=== PATIENT | female | born 1980 | race Caucasian/White ===

== ENCOUNTER 2017-11-19 21:45 | Emergency (ER) | payer OTHER, SELFPAY ==
[2017-11-19] MEDS ORDERED: NA CHLORIDE 0.9% 1,000 ML ONE ×3 (21:56→23:52)
[2017-11-19] MEDS ORDERED: DIPHENHYDRAMINE 50 MG/ML VIAL ONE ×2 (21:56→22:00)
[2017-11-19] MEDS ORDERED: CROTALIDAE ANTIVENIM 2 GM/BOX IV ONE (22:00)
[2017-11-19] MEDS ORDERED: NA CHLORIDE 0.9% 250 ML ONE (22:02)
[2017-11-19] MEDS ORDERED: ONDANSETRON 4 MG/2 ML VIAL ONE (22:09)
[2017-11-19] MEDS ORDERED: TETANUS & DIPHTHERIA TOX,ADULT 0.5 ML VIAL ONE (22:09)
[2017-11-19] MEDS ORDERED: MORPHINE 4 MG/ML SYR ONE (22:09)
[2017-11-19 22:42] LABS: Absolute Lymphocytes (CBC) 3.9 K/uL (0.7-4.9); Absolute Monocytes 0.4 K/uL (0.1-1.3); Absolute Neutrophil 4.3 K/uL (1.8-8.0); Basophils % 0.5 % (0-1.3); Eosinophils % 1.9 % (0-4.4); Hematocrit 39.5 % (36.0-45.0); Lymphocytes % 44.2 % (15.3-44.8); MCH 30.9 pg (27.0-35.0); MCV 90.5 fL (80-100); MPV 8.2 fL (7.6-11.3); Monocytes % 4.3 % (3.3-12.3); RBC Red Blood Cell Count 4.37 M/uL (3.86-4.86)
[2017-11-19 22:57] LABS: Protime INR 0.97
--- NOTE | 2017-11-19 23:04 | ER ---
Nurse's Notes [facility] Name: Celia Saunders Age: 37 yrs Sex: Female : 1980 Arrival Date: 11/19/2017 Time: 21:47 Bed 4 Private MD: Diagnosis: Toxic effect of rattlesnake venom;Hypotension Presentation: 11/19 21:52 Presenting complaint: Patient states: she was bit in right calf by a large rattlesnake bb at 2120 prior to arrival. Transition of care: patient was not received from another setting of care. Onset of symptoms was November 19, 2017. Risk Assessment: Do you want to hurt yourself or someone else? Patient reports no desire to harm self or others. Initial Sepsis Screen: Does the patient meet any 2 criteria? No. Patient's initial sepsis screen is negative. Does the patient have a suspected source of infection? No. Patient's initial sepsis screen is negative. Care prior to arrival: None. 21:52 Method Of Arrival: Wheelchair bb 21:52 Acuity: WILTON 2 bb [employer]: 21:53 LMP 11/19/2017 bb Historical: - Allergies: 21:53 No Known Allergies; bb - Home Meds: 21:53 None [Active]; bb - PMHx: 21:53 None; bb - PSHx: 21:53 Appendectomy; bb - Immunization history:: Adult Immunizations up to date. - Social history:: Smoking status: Patient/guardian denies using tobacco, Patient uses alcohol, occasionally. Patient/guardian denies using street drugs. - Ebola Screening: : No symptoms or risks identified at this time. - Family history:: not pertinent. - Hospitalizations: : No recent hospitalization is reported. Screenin:49 Abuse screen: Denies threats or abuse. Denies injuries from another. Nutritional lp1 screening: No deficits noted. Tuberculosis screening: No symptoms or risk factors identified. Fall Risk Total Laguerre Fall Scale indicates High Risk Score (45 or more points). Fall prevention measures have been instituted. Assessment: 22:00 General: Appears distressed, Behavior is anxious, crying. Pain: Complains of pain in lp1 right calf Pain currently is 10 out of 10 on a pain scale. Quality of pain is described as sharp, shooting, stabbing, Pain began 30 min ago. Neuro: Level of Consciousness is awake, alert, obeys commands, Oriented to person, place, time, situation. Cardiovascular: Capillary refill < 3 seconds in bilateral fingers toes Rhythm is sinus tachycardia. Respiratory: Airway is patent Trachea midline Respiratory effort is even, unlabored, Respiratory pattern is regular, symmetrical, Breath sounds are clear bilaterally. GI: Abdomen is non-distended, Reports nausea. : No signs and/or symptoms were reported regarding the genitourinary system. EENT: No signs and/or symptoms were reported regarding the EENT system. Derm: Puncture wounds to back of right calf; bruising and edema around site. Musculoskeletal: Circulation, motion, and sensation intact. 22:10 Reassessment:. Reassessment: Dr. Goff at bedside; Patient hypotensive. General: lp1 Behavior is. Neuro: Level of Consciousness is lethargic, Patient responding to questions. 22:45 Reassessment: Yasmine hugger applied to patient for comfort; Bite site continues to be lp1 bruised, swollen, no increase in size. 23:30 Reassessment: Report called to Jey Garces RN at [facility]. lp1 Vital Signs: 21:53 BP 122 / 84; Pulse 155; Resp 20 S; Pulse Ox 98% on R/A; Weight 74.84 kg (R); Height 5 bb ft. 2 in. (157.48 cm) (R); Pain 10/10; 22:00 BP 70 / 39; Pulse 111; Resp 20; Pulse Ox 98% on R/A; lp1 22:10 BP 72 / 48; Pulse 106; Resp 24; Pulse Ox 100% on 2 lpm NC; lp1 22:20 BP 85 / 59; Pulse 101; Resp 20; Pulse Ox 98% on 2 lpm NC; lp1 22:30 BP 104 / 70; Pulse 96; Resp 20; Pulse Ox 100% on 2 lpm NC; lp1 22:49 BP 106 / 79; Pulse 101; Resp 22; Pulse Ox 100% on 2 lpm NC; lp1 23:13 BP 102 / 71; Pulse 107; Resp 24; Temp 98.6(O); Pulse Ox 100% on 2 lpm NC; lp1 23:30 BP 97 / 63; Pulse 106; Resp 20; Pulse Ox 100% on 2 lpm NC; lp1 21:53 Body Mass Index 30.18 (74.84 kg, 157.48 cm) bb ED Course: 21:47 Patient arrived in ED. rg2 21:50 Inserted saline lock: 20 gauge in right antecubital area, using aseptic technique. ea ,using aseptic technique. Jessica Proctor RN Blood collected. 21:52 Jamal Goff MD is Attending Physician. rg2 21:53 Triage completed. bb 21:53 Arm band placed on Patient placed in an exam room, on a stretcher, on pathology teacher, bb on pulse oximetry. 22:00 Patient has correct armband on for positive identification. Placed in gown. Bed in low lp1 position. analytical technician on. Pulse ox on. NIBP on. 22:05 Inserted saline lock: 18 gauge in left antecubital area, using aseptic technique. bs1 22:37 Jessica Proctor, RN is Primary Nurse. lp1 06 00:05 No provider procedures requiring assistance completed. Patient transferred, IV remains lp1 in place. Administered Medications: 11/19 22:03 Drug: NS 0.9% 1000 ml Route: IV; Rate: 1000 ml; Site: right antecubital; ea 23:15 Follow up: IV Status: Completed infusion; IV Intake: 1000ml lp1 22:03 Drug: Benadryl 50 mg Route: IVP; Site: right antecubital; ea 22:30 Follow up: Response: No adverse reaction lp1 22:10 Drug: NS 0.9% 1000 ml Route: IV; Rate: 1000 ml; Site: left antecubital; lp1 23:15 Follow up: IV Status: Completed infusion; IV Intake: 1000ml lp1 22:15 Drug: CroFab 6 vials Route: IV; Rate: calculated rate; Site: left antecubital; lp1 23:20 Follow up: IV Status: Completed infusion; IV Intake: 250ml lp1 22:48 Drug: Tetanus-Diphtheria Toxoid Adult 0.5 ml {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 Exp: lp1 02/11/2020. Lot #: [id number]. } Route: IM; Site: right deltoid; 11/20 00:01 Follow up: Response: No adverse reaction lp1 11/19 23:23 Not Given (hypotensive): morphine 4 mg IVP once rn 23:30 Drug: NS 0.9% 1000 ml Route: IV; Rate: 150 ml/hr; Site: left antecubital; lp1 11/20 00:07 Follow up: IV Status: Infusion continued upon transfer lp1 11/19 23:36 Drug: Zofran 4 mg Route: IVP; Site: left antecubital; 11/20 00:01 Follow up: Response: No adverse reaction lp1 11/19 23:36 Drug: fentaNYL (PF) 25 mcg Route: IVP; Site: left antecubital; 11/20 00:00 Follow up: Response: No adverse reaction lp1 Point of Care Testing: Blood Glucose: 11/19 22:01 Blood Glucose: 86 mg/dL; ea Ranges: Intake: 23:15 IV: 1000ml; Total: 1000ml. lp1 23:15 IV: 1000ml; Total: 2000ml. lp1 23:20 IV: 250ml; Total: 2250ml. lp1 Outcome: 23:04 ER care complete, transfer ordered by . manny 11/20 00:06 Transferred by ground EMS to [facility], Transfer form completed. X-rays sent lp1 w/ patient. Condition: stable Instructed on the need for transfer, with patient 00:07 Patient left the ED. lp1 Signatures: Mac Cuellar rg2 Karrie Avendano RN RN Jamal Chu MD MD rn Pena, Laura, RN RN lp1 Araceli Elizabeth RN RN ea Salazar, Brittany RN RN bs1 Corrections: (The following items were deleted from the chart) 00:05 11/19 22:45 Reassessment: Yasmine cardoso applied to patient for comfort lp1 lp1
--- NOTE | 2017-11-19 23:04 | EDPHYS ---
Physician Documentation [facility] Name: Celia Saunders Age: 37 yrs Sex: Female : 1980 Arrival Date: 11/19/2017 Time: 21:47 Bed 4 Private MD: ED Physician Jamal Goff HPI: 11/19 22:07 This 37 yrs old Female presents to ER via Wheelchair with complaints of rn rattlesnake bite. 22:07 The patient was bitten on the right leg, by a snake, in an unprovoked manner, outdoors. rn Onset: The symptoms/episode began/occurred at 21:20. Animal information: The snake had the markings of a rattlesnake. Secondary to the bite the patient reports pain, swelling. Severity of symptoms: At their worst the symptoms were moderate, in the emergency department the symptoms are unchanged. The patient has not experienced similar symptoms in the past[place], bitten on leg, + swelling and bruising at site, + nausea/lightheaded/dizzy. No other medical problems. . 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 - Social history:: Smoking status: Patient/guardian denies using tobacco, Patient uses alcohol, occasionally. Patient/guardian denies using street drugs. - Ebola Screening: : No symptoms or risks identified at this time. - Family history:: not pertinent. - Hospitalizations: : No recent hospitalization is reported. ROS: 22:07 Constitutional: Negative for fever, chills, and weight loss, Eyes: Negative for injury, rn pain, redness, and discharge, Neck: Negative for injury, pain, and swelling, Cardiovascular: + palpitations Respiratory: Negative for shortness of breath, cough, wheezing, and pleuritic chest pain, Abdomen/GI: + nausea MS/Extremity: + RLE swelling and pain Skin: + bruising to RLE Neuro: Negative for headache, weakness, numbness, tingling, and seizure. Exam: 22:07 Constitutional: This is a well developed, well nourished patient who is awake, alert, rn pale and appears ill Head/Face: Normocephalic, atraumatic. Eyes: Pupils equal round and reactive to light, extra-ocular motions intact. Lids and lashes normal. Conjunctiva and sclera are non-icteric and not injected. Cornea within normal limits. Periorbital areas with no swelling, redness, or edema. ENT: No stridor, no tongue swelling Neck: Trachea midline, no thyromegaly or masses palpated, and no cervical lymphadenopathy. Supple, full range of motion without nuchal rigidity, or vertebral point tenderness. No Meningismus. Cardiovascular: tachycardic, regular, no murmur Respiratory: + mild tachypnea, no retractions Abdomen/GI: Soft, non-tender, with normal bowel sounds. No distension or tympany. No guarding or rebound. No evidence of tenderness throughout. MS/ Extremity: Pulses equal, no cyanosis. + swelling adn ecchymosis right lower posterior leg, no fluctuance, compartments soft, swelling from posterior knee to above right ankle. Neuro: Awake, GCS 15, oriented to person, place, time, and situation. Cranial nerves II-XII grossly intact. Motor strength 5/5 in all extremities. Sensory grossly intact. Vital Signs: 21:53 BP 122 / 84; Pulse 155; Resp 20 S; Pulse Ox 98% on R/A; Weight 74.84 kg (R); Height 5 bb ft. 2 in. (157.48 cm) (R); Pain 10/10; 22:00 BP 70 / 39; Pulse 111; Resp 20; Pulse Ox 98% on R/A; lp1 22:10 BP 72 / 48; Pulse 106; Resp 24; Pulse Ox 100% on 2 lpm NC; lp1 22:20 BP 85 / 59; Pulse 101; Resp 20; Pulse Ox 98% on 2 lpm NC; lp1 22:30 BP 104 / 70; Pulse 96; Resp 20; Pulse Ox 100% on 2 lpm NC; lp1 22:49 BP 106 / 79; Pulse 101; Resp 22; Pulse Ox 100% on 2 lpm NC; lp1 23:13 BP 102 / 71; Pulse 107; Resp 24; Temp 98.6(O); Pulse Ox 100% on 2 lpm NC; lp1 23:30 BP 97 / 63; Pulse 106; Resp 20; Pulse Ox 100% on 2 lpm NC; lp1 21:53 Body Mass Index 30.18 (74.84 kg, 157.48 cm) bb MDM: 21:54 Patient medically screened. rn 22:06 ED course: Crofab ordered for systemic symptoms, significant swelling, nausea, rn lightheaded, hypotensive. 2 L bolus going.. 22:55 ED course: transfer to [facility] has been initiated. Pt improving, BP now 101/73.rn 23:03 Differential diagnosis: snake bite. Data reviewed: vital signs, nurses notes, lab test rn result(s), and as a result, I will admit patient. Counseling: I had a detailed discussion with the patient and/or guardian regarding: the historical points, exam findings, and any diagnostic results supporting the discharge/admit diagnosis, lab results, the need to transfer to another facility, for higher level of care. Response to treatment: the patient's symptoms have mildly improved after treatment, and as a result, I will admit patient. 11/19 21:55 Order name: CBC with Diff; Complete Time: 22:50 11/19 21:55 Order name: Basic Metabolic Panel; Complete Time: 22:58 11/19 21:55 Order name: Protime (+inr); Complete Time: 22:58 11/19 21:55 Order name: Ptt, Activated; Complete Time: 22:58 11/19 21:55 Order name: D-Dimer; Complete Time: 22:58 11/19 21:55 Order name: Fibrinogen; Complete Time: 22:58 11/19 23:23 Order name: Urine Dipstick--Ancillary (enter results) [facility] 11/19 23:23 Order name: Urine --Ancillary (enter results) [facility] 11/19 21:55 Order name: IV Start; Complete Time: 22:34 11/19 21:55 Order name: EKG; Complete Time: 21:56 11/19 21:55 Order name: EKG - Nurse/Tech; Complete Time: 23:16 11/19 21:55 Order name: Urine Dipstick-Ancillary (obtain specimen); Complete Time: 00:01 11/19 21:55 Order name: Urine Test (obtain specimen); Complete Time: 00:01 rn Administered Medications: 22:03 Drug: NS 0.9% 1000 ml Route: IV; Rate: 1000 ml; Site: right antecubital; ea 23:15 Follow up: IV Status: Completed infusion; IV Intake: 1000ml [facility] 22:03 Drug: Benadryl 50 mg Route: IVP; Site: right antecubital; ea 22:30 Follow up: Response: No adverse reaction [facility] 22:10 Drug: NS 0.9% 1000 ml Route: IV; Rate: 1000 ml; Site: left antecubital; lp1 23:15 Follow up: IV Status: Completed infusion; IV Intake: 1000ml lp1 22:15 Drug: CroFab 6 vials Route: IV; Rate: calculated rate; Site: left antecubital; 1 23:20 Follow up: IV Status: Completed infusion; IV Intake: 250ml [facility] 22:48 Drug: Tetanus-Diphtheria Toxoid Adult 0.5 ml {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 Exp: [facility] 02/11/2020. Lot #: [id number]. } Route: IM; Site: right deltoid; 11/20 00:01 Follow up: Response: No adverse reaction [facility] 11/19 23:23 Not Given (hypotensive): morphine 4 mg IVP once rn 23:30 Drug: NS 0.9% 1000 ml Route: IV; Rate: 150 ml/hr; Site: left antecubital; [facility] 11/20 00:07 Follow up: IV Status: Infusion continued upon transfer [facility] 11/19 23:36 Drug: Zofran 4 mg Route: IVP; Site: left antecubital; 11/20 00:01 Follow up: Response: No adverse reaction [facility] 11/19 23:36 Drug: fentaNYL (PF) 25 mcg Route: IVP; Site: left antecubital; 11/20 00:00 Follow up: Response: No adverse reaction [facility] Point of Care Testing: Blood Glucose: 11/19 22:01 Blood Glucose: 86 mg/dL; ea Ranges: Critical Glucose Levels:Adult <50 mg/dl or >400 mg/dl <40 mg/dl or >180 mg/dl Disposition: 11/19/17 23:04 Transfer ordered to [facility]. Diagnosis are Toxic effect of rattlesnake venom, Hypotension. - Reason for transfer: Higher level of care. - Accepting physician is Dr. Cannon. - Condition is Stable. - Problem is new. - Symptoms have improved. Critical care time excluding procedures: 23:03 Critical care time: Bedside Care: 25 minutes, Consultation: 5 minutes, Family rn Intervention: 5 minutes. Total time: 35 minutes Signatures: Dispatcher [employer] EDKarrie Lala RN RN bb Jamal Goff MD MD rn Pena, Laura, RN RN lp1 Araceli Elizabeth RN RN ea Corrections: (The following items were deleted from the chart) 23:04 23:04 11/19/2017 23:04 Transfer ordered to [facility]. rn Diagnosis is Toxic effect of rattlesnake venom. Reason for transfer: Higher level of care. Accepting physician is Dr. Cannon. Condition is Stable. Problem is new. Symptoms have improved. rn 11/20 00:07 11/19 23:04 11/19/2017 23:04 Transfer ordered to [facility]. lp1 Diagnosis is Toxic effect of rattlesnake venom; Hypotension. Reason for transfer: Higher level of care. Accepting physician is Dr. Cannon. Condition is Stable. Problem is new. Symptoms have improved. rn
[2017-11-19 23:27] LABS: Urine Blood NEGATIVE (NEG); Urine Glucose NEGATIVE (NEG); Urine Protein 1+ (NEG); Urine pH 6.5 (5.0-7.0)
[2017-11-19] MEDS ORDERED: FENTANYL CITR 100 MCG/2 ML ONE (23:29)
--- NOTE | 2017-11-20 07:55 | EKG ---
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
== END 2017-11-20 00:07 | disposition short-term general hospital (02) ==
LOC: ER 21:45
DX: T63.011A Toxic effect of rattlesnake venom, accidental (unintentional), initial encounter (principal); I95.9 Hypotension, unspecified; Y92.832 Beach as the place of occurrence of the external cause; Z23 Encounter for immunization
CPT/HCPCS: 36415; 80048; 81003; 81025; 82962; 85025; 85379; 85384; 85610; 85730; 90714; 93005; 99285; J0840; J2405; J3010; J7030